=== PATIENT | female | born 1950 | race Caucasian/White ===

== ENCOUNTER 2023-08-13 18:02 | Emergency (ER) | payer MEDICARE ==
[~2023-08-13] VITALS: Ht 165.1 cm; Wt 74.8 kg
[~2023-08-13 18:02] MED LIST: LISI20TA28 PO; ONDA4TAB6 PO; SIMV-42 PO
[2023-08-13 18:11] VITALS: RESP 16; TEMP 97.7
[2023-08-13 18:55] LABS: BASOPHILS # (AUTO) 0.1 X10'3 (0-0.2); BASOPHILS % (AUTO) 1.2 % (0-1); EOSINOPHILS # (AUTO) 0.2 X10'3 (0-0.9); EOSINOPHILS % (AUTO) 4.2 % (0-6); HEMATOCRIT 39.1 % (35.0-45.0); HEMOGLOBIN 13.3 g/dl (12.0-16.0); LYMPHOCYTES # (AUTO) 1.8 X10'3 (1.1-4.8); LYMPHOCYTES % (AUTO) 35.2 % (21-51); MEAN CORPUSCULAR HEMOGLOBIN 32.5 PG (27.0-31.0); MEAN CORPUSCULAR VOLUME 95.4 FL (78-98); MEAN PLATELET VOLUME 7.5 FL (7.4-10.4); MONOCYTES # (AUTO) 0.5 X10'3 (0-0.9); MONOCYTES % (AUTO) 10.5 % (2-12); NEUTROPHILS # (AUTO) 2.5 X10'3 (1.8-7.7); NEUTROPHILS % (AUTO) 48.9 % (42-75); PLATELET COUNT 384 X10'3 (140-440); RED BLOOD COUNT 4.09 X10'6 (4.20-5.60); RED CELL DISTRIBUTION WIDTH 13.3 % (11.5-14.5); WHITE BLOOD COUNT 5.1 X10'3 (4.5-11.0)
[2023-08-13 18:58] LABS: ALANINE AMINOTRANSFERASE 19 U/L (12-78); ALBUMIN 3.7 G/DL (3.4-5.0); ALBUMIN/GLOBULIN RATIO 0.9 (1.1-1.5); ALKALINE PHOSPHATASE 75 IU/L (46-116); ANION GAP 5 (8-16); ASPARTATE AMINO TRANSFERASE 16 U/L (10-37); BILIRUBIN,TOTAL 0.3 MG/DL (0.1-1.0); BLOOD UREA NITROGEN 13 MG/DL (7-18); CALCIUM 9.6 MG/DL (8.5-10.1); CHLORIDE 99 MMOL/L (99-107); CREATININE 0.62 MG/DL (0.40-0.90); GLUCOSE 132 MG/DL (70-104); POTASSIUM 3.2 MMOL/L (3.5-5.1); SODIUM 134 MMOL/L (135-145); TOTAL CARBON DIOXIDE 30.4 MMOL/L (24-32); eCRCL 72 ML/MIN; eGFR > 90 ML/MIN
[2023-08-13 19:06] LABS: PRO BRAIN NATRIURETIC PEPTIDE 149 PG/ML (0-125)
[2023-08-13] MEDS ORDERED: ketorolac trometh. 30mg/ml inj. IV ONE (20:05)
[2023-08-13] MEDS ORDERED: ketorolac trometh. 30mg/ml inj. IM ONE (20:10)
[2023-08-13 20:54] VITALS: BP 161/71; PULSE 70; O2SAT 97
== END 2023-08-13 20:57 | disposition home or self-care (01) ==
LOC: ER 18:03
DX: R10.31 Right lower quadrant pain (principal); R11.0 Nausea; Z88.5 Allergy status to narcotic agent
CPT/HCPCS: 36415; 71045; 74176; 80053; 83880; 84484; 85025; 93005; 96372; 99285; J1885

== ENCOUNTER 2023-09-19 10:21 | Emergency (ER) | payer MEDICARE ==
[~2023-09-19] VITALS: Ht 165.1 cm; Wt 75.0 kg
[2023-09-19 10:59] VITALS: BP 145/65; PULSE 71; RESP 18; TEMP 98.7; O2SAT 94
[2023-09-19] MEDS ORDERED: AMOX500C2 PO (13:37)
[2023-09-19 14:38] LABS: STREP A SCREEN NEGATIVE (Neg)
== END 2023-09-19 14:31 | disposition home or self-care (01) ==
LOC: ER 10:22
DX: J02.9 Acute pharyngitis, unspecified (principal); Z20.822 Contact with and (suspected) exposure to COVID-19; H66.93 Otitis media, unspecified, bilateral; R19.7 Diarrhea, unspecified; J10.1 Influenza due to other identified influenza virus with other respiratory manifestations
CPT/HCPCS: 36415; 87081; 87502; 87503; 87811; 87880; 99283

== ENCOUNTER 2023-09-24 19:39 | Emergency (ER) | payer MEDICARE ==
[~2023-09-24] VITALS: Ht 165.1 cm; Wt 73.0 kg
[~2023-09-24 19:39] MED LIST changes: +AMOX500C2 PO
[2023-09-24 20:56] LABS: BASOPHILS # (AUTO) 0.1 X10'3 (0-0.2); BASOPHILS % (AUTO) 0.7 % (0-1); EOSINOPHILS % (AUTO) 0.2 % (0-6); HEMATOCRIT 37.6 % (35.0-45.0); HEMOGLOBIN 12.9 g/dl (12.0-16.0); LYMPHOCYTES # (AUTO) 1.5 X10'3 (1.1-4.8); LYMPHOCYTES % (AUTO) 18.1 % (21-51); MEAN CORPUSCULAR HGB CONC 34.4 g/dL (33.0-36.5); MEAN CORPUSCULAR VOLUME 93.1 FL (78-98); MEAN PLATELET VOLUME 7.4 FL (7.4-10.4); MONOCYTES # (AUTO) 0.9 X10'3 (0-0.9); MONOCYTES % (AUTO) 10.5 % (2-12); NEUTROPHILS # (AUTO) 5.8 X10'3 (1.8-7.7); NEUTROPHILS % (AUTO) 70.5 % (42-75); PLATELET COUNT 308 X10'3 (140-440); RED BLOOD COUNT 4.04 X10'6 (4.20-5.60); RED CELL DISTRIBUTION WIDTH 12.7 % (11.5-14.5); WHITE BLOOD COUNT 8.2 X10'3 (4.5-11.0)
[2023-09-24 21:08] LABS: ALANINE AMINOTRANSFERASE 36 U/L (12-78); ALBUMIN 3.3 G/DL (3.4-5.0); ALBUMIN/GLOBULIN RATIO 0.8 (1.1-1.5); ALKALINE PHOSPHATASE 70 IU/L (46-116); ANION GAP 9 (8-16); ASPARTATE AMINO TRANSFERASE 33 U/L (10-37); BILIRUBIN,TOTAL 0.3 MG/DL (0.1-1.0); BLOOD UREA NITROGEN 13 MG/DL (7-18); BUN/CREATININE RATIO 19.4 (10.0-20.0); CHLORIDE 90 MMOL/L (99-107); CREATININE 0.67 MG/DL (0.40-0.90); GLUCOSE 122 MG/DL (70-104); POTASSIUM 3.4 MMOL/L (3.5-5.1); SODIUM 127 MMOL/L (135-145); TOTAL PROTEIN 7.7 G/DL (6.4-8.2); eCRCL 66 ML/MIN; eGFR 86 ML/MIN
[2023-09-24 21:17] LABS: PRO BRAIN NATRIURETIC PEPTIDE 125 PG/ML (0-125)
[2023-09-24] MEDS ORDERED: potassium Cl 20 mEq SR tablet PO STA (23:11)
[2023-09-24] MEDS ORDERED: dexamethasone sod phosphate 10mg/ml inj IV STA (23:11)
[2023-09-24] MEDS ORDERED: normal saline 1000ml 1,000 ML IV ONE (23:15)
[2023-09-25] MEDS ORDERED: TAM75C PO (00:32)
[2023-09-25 00:48] VITALS: BP 160/74; PULSE 75; RESP 18; TEMP 98.4; O2SAT 97
== END 2023-09-25 00:50 | disposition home or self-care (01) ==
LOC: ER 19:39
DX: J11.1 Influenza due to unidentified influenza virus with other respiratory manifestations (principal); E86.0 Dehydration; E87.1 Hypo-osmolality and hyponatremia; E87.6 Hypokalemia; B34.9 Viral infection, unspecified; Z88.5 Allergy status to narcotic agent; Z79.2 Long term (current) use of antibiotics; Z79.899 Other long term (current) drug therapy
CPT/HCPCS: 36415; 71045; 80053; 83880; 84484; 85025; 93005; 96361; 96374; 99285; J1100; J7030